=== PATIENT | female | born 1980 | race Caucasian/White ===

== ENCOUNTER → 2017-02-10 | Outpatient (CLI) | payer OTHER ==
--- NOTE | 2017-02-10 13:33 | KCIC ---
History: Bloating, cramping, 12 pound weight gain over 2 weeks. Comparison: None. Findings: AP view of the abdomen. Bowel gas pattern is nonspecific, without evidence of obstruction. Both renal shadows are partially obscured by bowel gas and stool, but no convincing calcification is seen over either renal shadow. Impression: Nonspecific bowel gas pattern. Electronically signed by: Elkin Crawford MD (02/10/2017 1:29 PM) [place] [id number]
--- NOTE | 2017-02-10 13:35 | KCIC ---
Pelvic ultrasound History: Vaginal spotting for 2 weeks, pain Comparison: None. Technique: Transabdominal ultrasound was performed to evaluate the uterine fundus. Endovaginal imaging was performed to evaluate optimally the endometrial canal and lower uterine segment. TRANSABDOMINAL IMAGING Findings: Neither ovary is well seen with transabdominal imaging. The uterus is suboptimally visualized and is estimated to measure about 7 cm. Endometrium is not well seen. ENDOVAGINAL IMAGING Findings: The uterus measures 7.9 cm in length and is unremarkable. The endometrium measures a mm. Small nabothian cyst is seen. Right ovary measures 2.6 x 2.2 x 1.5 cm and demonstrates a few follicles. The left ovary measures 2.0 x 1.8 x 2.2 cm and is unremarkable. No adnexal masses are identified. No significant free fluid is identified within the pelvis. Impression: 1. Small nabothian cyst. Otherwise, unremarkable pelvic ultrasound. Electronically signed by: Elkin Crawford MD (02/10/2017 1:32 PM) [facility]
== END | disposition home or self-care (01) ==
LOC: KCIC US 12:11
PROVIDERS: ATTEND Family Medicine
DX: N88.8 Other specified noninflammatory disorders of cervix uteri (principal); R14.0 Abdominal distension (gaseous); R25.2 Cramp and spasm; R63.5 Abnormal weight gain
CPT/HCPCS: 74000; 76830; 76856